=== PATIENT | male | born 1995 | race Two or more races ===

== ENCOUNTER → 2023-12-01 | Outpatient (CLI) | payer OTHER ==
[~2023-12-01] MED LIST: PROHANCE 279.3MG/ML 15ML VIAL ONE; PROHANCE 279.3MG/ML 5ML VIAL ONE
== END ==
LOC: M PLAIMG 09:37
PROVIDERS: ATTEND Internal Medicine
DX: D16.21 Benign neoplasm of long bones of right lower limb (principal)
CPT/HCPCS: 73720; 73723; A9576